=== PATIENT | male | born 1970 | race Two or more races ===

== ENCOUNTER 2018-05-11 23:43 | Emergency (ER) | payer SELFPAY ==
[~2018-05-11] VITALS: Ht 162.6 cm; Wt 63.5 kg
[2018-05-11 23:51] VITALS: BP 138/90
== END 2018-05-12 01:42 | disposition home or self-care (01) ==
LOC: ER 23:44
DX: S00.83XA Contusion of other part of head, initial encounter (principal); S00.81XA Abrasion of other part of head, initial encounter; S10.81XA Abrasion of other specified part of neck, initial encounter; Y04.0XXA Assault by unarmed brawl or fight, initial encounter; Y93.89 Activity, other specified; Y92.89 Other specified places as the place of occurrence of the external cause; Y99.8 Other external cause status
CPT/HCPCS: 70486; 99284; A4606; Z7610